=== PATIENT | male | born 1975 | race Caucasian/White ===

== ENCOUNTER → 2017-12-15 | Outpatient (CLI) | payer OTHER ==
[~2017-12-15] MED LIST: AMOX-362 PO; ASPI-757 PO; CLIN300C99 PO; HYDR-3083 PO; IBUP-1687 PO; OXYC-865 PO; OXYC5TAB38 PO; [UNRECOGNIZED DRUG - CODE] PO
== END ==
LOC: LAB 15:19
PROVIDERS: ATTEND Surgery
DX: B07.9 Viral wart, unspecified (principal)
CPT/HCPCS: 88305